=== PATIENT | female | born 1975 | race Caucasian/White ===

== ENCOUNTER → 2017-02-07 | Outpatient (CLI) | payer OTHER ==
[2017-02-07 09:04] LABS: ALT 39 U/L (9-52); AST 21 U/L (14-36); Alkaline Phosphatase 60 U/L (38-126); Anion Gap 8 mmol/L; Blood Urea Nitrogen 17 mg/dL (7-17); Calcium 9.3 mg/dL (8.4-10.2); Carbon Dioxide 26 mmol/L (22-30); Chloride 106 mmol/L (98-107); Cholesterol 203 mg/dL (<200); Glucose 107 mg/dL (74-99); HDL Cholesterol 47 mg/dL (40-60); Non-African American GFR(MDRD) >60 (>60 ml/min/1.73 sqM); Potassium 4.8 mmol/L (3.5-5.1); Sodium 140 mmol/L (137-145); Total Bilirubin 0.6 mg/dL (0.2-1.3); Total Protein 6.9 g/dL (6.3-8.2)
== END | disposition home or self-care (01) ==
LOC: LABWHC1 08:13
PROVIDERS: ATTEND Physician Assistant Medical
DX: Z00.00 Encounter for general adult medical examination without abnormal findings (principal); Z13.29 Encounter for screening for other suspected endocrine disorder; Z13.220 Encounter for screening for lipoid disorders
CPT/HCPCS: 36415; 80053; 80061; 84443

== ENCOUNTER 2019-10-01 12:01 | Emergency (ER) | payer BC, OTHER ==
[2019-10-01 12:23] VITALS: BP 130/71; PULSE 76; RESP 18; TEMP 97.7
[2019-10-01] MEDS ORDERED: MAG HYDROX/AL HYDROX/SIMETH 30 ML, HYOSCYAMINE ELIXIR 10 ML PO STA ×2 (12:31)
--- NOTE | 2019-10-01 12:34 | ED ---
General Adult HPI - General Chief complaint: Abdominal Pain Stated complaint: poss gallbladder problem Time Seen by Provider: 10/01/19 12:15 Source: patient, RN notes reviewed, old records reviewed Mode of arrival: ambulatory Limitations: no limitations - History of Present Illness Initial comments: This is a 43-year-old female presents emergency department because she was having epigastric abdominal pain and was reading around her abdomen into the [employer]. Patient states it happened today at work a few hours after she ate. She states the pain is excruciating and then it eventually subsides. Patient states sometimes water seems to help. Patient states she's had happened 2 other times over the last couple of months. Patient denies any vomiting patient denies any diarrhea. Patient any chest pain difficult breathing or shortness of breath per patient denies any palpitations. Patient denies any recent fever chills or cough. Patient denies any previous known gallbladder symptoms. Patient states she has taken antacids but it hasn't helped. - Related Data Home Medications Medication Instructions Recorded Confirmed Flonase(Dose Unknown) 2 sprays EA NOSTRIL HS 06/15/14 03/30/15 Travoprost [Travatan Z 0.004%] 1 drop BOTH EYES HS 06/15/14 03/30/15 Famotidine [Pepcid] 40 mg PO HS 03/30/15 03/30/15 Ibuprofen [Motrin] 800 mg PO BID PRN 03/30/15 03/30/15 Previous Rx's Medication Instructions Recorded Meclizine [Antivert] 25 mg PO DAILY 10 Days tab 03/30/15 Allergies Allergy/AdvReac Type Severity Reaction Status Date / Time codeine AdvReac Nausea & Verified 10/01/19 12:22 Vomiting naproxen AdvReac Unknown Verified 10/01/19 12:22 Review of Systems ROS Statement: Those systems with pertinent positive or pertinent negative responses have been documented in the HPI. ROS Other: All systems not noted in ROS Statement are negative. Past Medical History Past Medical History: Thyroid Disorder Additional Past Medical History / Comment(s): glaucoma History of Any Multi-Drug Resistant Organisms: None Reported Past Surgical History: Section, Orthopedic Surgery Past Psychological History: No Psychological Hx Reported Smoking Status: Never smoker Past Alcohol Use History: Occasional Past Drug Use History: None Reported General Exam - General Exam Comments Initial Comments: GENERAL: Patient is well-developed and well-nourished. Patient is nontoxic and well- hydrated and is in mild distress. ENT: Neck is soft and supple. No significant lymphadenopathy is noted. Oropharynx is clear. Moist mucous membranes. Neck has full range of motion without [place] citing any pain. EYES: The sclera were anicteric and conjunctiva were pink and moist. Extraocular movements were intact and pupils were equal round and reactive to light. Eyelids were unremarkable. PULMONARY: Unlabored respirations. Good breath sounds bilaterally. No audible rales rhonchi or wheezing was noted. CARDIOVASCULAR: There is a regular rate and rhythm without any murmurs gallops or rubs. ABDOMEN: Soft and nontender with normal bowel sounds. SKIN: Skin is clear with no lesions or rashes and otherwise unremarkable. NEUROLOGIC: Patient is alert and oriented x3. Cranial nerves II through XII are grossly intact. Motor and sensory are also intact. Normal speech, volume and content. Symmetrical smile. MUSCULOSKELETAL: Normal extremities with adequate strength and full range of motion. LYMPHATICS: No significant lymphadenopathy is noted PSYCHIATRIC: Normal psychiatric evaluation. Limitations: no limitations Course Vital Signs 10/01/19 12:17 Temperature 97.7 F Pulse Rate 76 Respiratory 18 Rate Blood Pressure 130/71 O2 Sat by Pulse 99 Oximetry Medical Decision Making - Medical Decision Making Ultrasound shows cholelithiasis but no obvious signs of cholecystitis I will begin to reevaluate the patient patient was pain-free at this time and she did state that the GI cocktail did not help her - Lab Data Result diagrams: 10/01/19 12:46 10/01/19 12:46 Lab Results 10/01/19 10/01/19 10/01/19 Range/Units 12:46 12:46 12:46 WBC 11.2 H (3.8-10.6) k/uL RBC 4.65 (3.80-5.40) m/uL Hgb 13.7 (11.4-16.0) gm/dL Hct 41.6 (34.0-46.0) % MCV 89.3 (80.0-100.0) fL MCH 29.5 (25.0-35.0) pg MCHC 33.1 (31.0-37.0) g/dL RDW 12.6 (11.5-15.5) % Plt Count 308 (150-450) k/uL Neutrophils % 73 % Lymphocytes % 17 % Monocytes % 6 % Eosinophils % 2 % Basophils % 0 % Neutrophils # 8.2 H (1.3-7.7) k/uL Lymphocytes # 2.0 (1.0-4.8) k/uL Monocytes # 0.6 (0-1.0) k/uL Eosinophils # 0.2 (0-0.7) k/uL Basophils # 0.1 (0-0.2) k/uL Sodium 139 (137-145) mmol/L Potassium 3.9 (3.5-5.1) mmol/L Chloride 104 (98-107) mmol/L Carbon Dioxide 25 (22-30) mmol/L Anion Gap 10 mmol/L BUN 14 (7-17) mg/dL Creatinine 0.87 (0.52-1.04) mg/dL Est GFR (CKD-EPI)AfAm >90 (>60 ml/min/1.73 sqM) Est GFR (CKD-EPI)NonAf 82 (>60 ml/min/1.73 sqM) Glucose 112 H (74-99) mg/dL Calcium 9.6 (8.4-10.2) mg/dL Total Bilirubin 1.1 (0.2-1.3) mg/dL AST 115 H (14-36) U/L ALT 51 H (4-34) U/L Alkaline Phosphatase 77 (38-126) U/L Total Protein 7.4 (6.3-8.2) g/dL Albumin 4.2 (3.5-5.0) g/dL Amylase 42 (30-110) U/L Lipase 49 (23-300) U/L Urine Color Yellow Urine Appearance Clear (Clear) Urine pH 6.0 (5.0-8.0) Ur Specific [place] 1.019 (1.001-1.035) Urine Protein Negative (Negative) Urine Glucose (UA) Negative (Negative) Urine Ketones Negative (Negative) Urine Blood Trace H (Negative) Urine Nitrite Negative (Negative) Urine Bilirubin Negative (Negative) Urine Urobilinogen <2.0 (<2.0) mg/dL Ur Leukocyte Esterase Small H (Negative) Urine RBC 2 (0-5) /hpf Urine WBC 2 (0-5) /hpf Ur Squamous Epith Cells 4 (0-4) /hpf Urine Mucus Rare H (None) /hpf Disposition Clinical Impression: Cholelithiasis, Biliary colic Disposition: HOME SELF-CARE Condition: Good Instructions (If sedation given, give patient instructions): Biliary Colic (ED), Gallstones (ED) Is patient prescribed a controlled substance at d/c from ED?: No Referrals: Cameron Anaya III, MD [Primary Care Provider] - 1-2 days Time of Disposition: 14:12
[2019-10-01 12:52] LABS: Appearance,Urine Clear (Clear); Bilirubin,Urine Negative (Negative); Blood,Urine Trace (Negative); Color,Urine Yellow; Glucose,Urine (UA) Negative (Negative); Ketones,Urine Negative (Negative); Leukocyte Esterase,Urine Small (Negative); Mucus,Urine Rare /hpf; Nitrite,Urine Negative (Negative); Protein,Urine Negative (Negative); RBC,Urine 2 /hpf (0-5); Specific Gravity,Urine 1.019 (1.001-1.035); Squamous Epithelial Cell,Urine 4 /hpf (0-4); Urobilinogen,Urine <2.0 mg/dL (<2.0); WBC,Urine 2 /hpf (0-5)
[2019-10-01 12:53] LABS: Basophils # (A) 0.1 k/uL (0-0.2); Basophils % (A) 0 %; Eosinophils # (A) 0.2 k/uL (0-0.7); Eosinophils % (A) 2 %; HCT 41.6 % (34.0-46.0); HGB 13.7 gm/dL (11.4-16.0); Lymphocytes % (A) 17 %; MCH 29.5 pg (25.0-35.0); MCHC 33.1 g/dL (31.0-37.0); MCV 89.3 fL (80.0-100.0); Mean Platelet Volume 6.8; Monocytes # (A) 0.6 k/uL (0-1.0); Monocytes % (A) 6 %; Neutrophils # (A) 8.2 k/uL (1.3-7.7); Neutrophils % (A) 73 %; Platelet Count 308 k/uL (150-450); RBC 4.65 m/uL (3.80-5.40); RDW 12.6 % (11.5-15.5); WBC 11.2 k/uL (3.8-10.6)
[2019-10-01 13:04] LABS: ALT 51 U/L (4-34); AST 115 U/L (14-36); African American GFR (CKD) >90 (>60 ml/min/1.73 sqM); Albumin 4.2 g/dL (3.5-5.0); Alkaline Phosphatase 77 U/L (38-126); Amylase 42 U/L (30-110); Anion Gap 10 mmol/L; Blood Urea Nitrogen 14 mg/dL (7-17); Calcium 9.6 mg/dL (8.4-10.2); Carbon Dioxide 25 mmol/L (22-30); Chloride 104 mmol/L (98-107); Glucose 112 mg/dL (74-99); Non-African American GFR(CKD) 82 (>60 ml/min/1.73 sqM); Potassium 3.9 mmol/L (3.5-5.1); Sodium 139 mmol/L (137-145); Total Bilirubin 1.1 mg/dL (0.2-1.3); Total Protein 7.4 g/dL (6.3-8.2)
--- NOTE | 2019-10-01 13:16 | XR ---
EXAMINATION TYPE: XR KUB DATE OF EXAM: 10/01/2019 COMPARISON: NONE HISTORY: Pain TECHNIQUE: Single supine KUB image of the abdomen is obtained FINDINGS: Small bowel demonstrates no evidence for dilatation or air fluid levels. Gas and fecal material is seen in non-distended colon. No convincing evidence for pneumoperitoneum. No unusual calcifications. The lung bases are clear. The osseous structures are intact. IMPRESSION: 1. Overall nonobstructive bowel gas pattern.
--- NOTE | 2019-10-01 13:53 | US ---
EXAMINATION TYPE: US gallbladder DATE OF EXAM: 10/01/2019 COMPARISON: NONE CLINICAL HISTORY: Epigastric abdominal pain radiating to the back . EXAM MEASUREMENTS: Liver Length: 15.1 cm Gallbladder Wall: 0.5 cm CBD: 0.5 cm Right Kidney: 10.1 x 3.6 x 4.5 cm Pancreas: Obscured by bowel gas Liver: wnl Gallbladder: cholelithiasis, wall slightly thickened Evidence for sonographic José's sign: no CBD: wnl Right Kidney: wnl IMPRESSION: 1. Cholelithiasis correlate for cholecystitis.
== END 2019-10-01 14:44 | disposition home or self-care (01) ==
LOC: EC 12:01
DX: K80.70 Calculus of gallbladder and bile duct without cholecystitis without obstruction (principal); H40.9 Unspecified glaucoma; Z79.899 Other long term (current) drug therapy; Z88.5 Allergy status to narcotic agent; Z88.6 Allergy status to analgesic agent; Z98.890 Other specified postprocedural states
CPT/HCPCS: 36415; 74018; 76705; 80053; 81001; 82150; 83690; 85025; 99285

== ENCOUNTER → 2020-01-11 | Outpatient (CLI) | payer BC ==
--- NOTE | 2020-01-11 14:05 | MM ---
Reason for exam: screening (asymptomatic). Last mammogram was performed 5 years ago. History: Took hormonal contraceptives for 3 years. Physical Findings: A clinical breast exam by your physician is recommended on an annual basis and results should be correlated with mammographic findings. MG Screening Mammo w CAD Bilateral CC and MLO view(s) were taken. Prior study comparison: December 26, 2014, bilateral MG screening mammo w CAD. There are scattered fibroglandular densities. Focal asymmetry anterior depth slight upper outer quadrant 3-4cm from nipple. This finding is changed when compared with previous exams. ASSESSMENT: Incomplete: need additional imaging evaluation, BI-RAD 0 RECOMMENDATION: Special view mammogram of the left breast. If lesion persists on supplemental views, image directed ultrasound is recommended. [facility] will attempt to contact patient to return for supplemental views and ultrasound if indicated.
== END | disposition home or self-care (01) ==
LOC: RADMAMWWP 08:17
PROVIDERS: ATTEND Family Medicine
DX: Z12.31 Encounter for screening mammogram for malignant neoplasm of breast (principal)
CPT/HCPCS: 77067

== ENCOUNTER → 2020-01-13 | Outpatient (CLI) | payer BC ==
--- NOTE | 2020-01-18 10:00 | MM ---
Reason for exam: additional evaluation requested from abnormal screening. Last mammogram was performed less than 1 month ago. History: Took hormonal contraceptives for 3 years. Physical Findings: Nurse did not find any significant physical abnormalities on exam. MG Work Up Mamm w CAD LT Spot compression CC, spot compression MLO, and ML view(s) were taken of the left breast. Prior study comparison: January 11, 2020, bilateral MG screening mammo w CAD. December 26, 2014, bilateral MG screening mammo w CAD. There are scattered fibroglandular densities. Finding: There is a new 6-7mm indistinct round mass located 5-6cm from the nipple in the anterior position of the left breast, persists on additional views. These results were verbally communicated with the patient and result sheet given to the patient on 01/13/20. ASSESSMENT: Incomplete: need additional imaging evaluation, BI-RAD 0 RECOMMENDATION: Ultrasound of the left breast.
--- NOTE | 2020-01-18 10:01 | USB ---
Reason for exam: additional evaluation requested from abnormal screening. History: Took hormonal contraceptives for 3 years. US Breast Workup Limited LT Left limited breast ultrasound including focal area of concern, retroareolar and axilla demonstrates no cystic or solid lesion seen. These results were verbally communicated with the patient and result sheet given to the patient on 01/13/20. ASSESSMENT: Suspicious, BI-RAD 4 RECOMMENDATION: Stereotactic core biopsy of the left breast. Called Dr. Anaya's office with mammographic findings and has scheduled an appointment for the patient for 03/08/20 at 4:[address] Chester. Biopsy scheduled for 01/31/20 at 8:00. PRELIMINARY REPORT CALLED AND FAXED TO DR. CHESTER ON 01/18/20.
== END | disposition home or self-care (01) ==
LOC: RADMAMWWP 07:05
PROVIDERS: ATTEND Family Medicine
DX: R92.8 Other abnormal and inconclusive findings on diagnostic imaging of breast (principal)
CPT/HCPCS: 77065

== ENCOUNTER → 2020-01-31 | Day surgery (SDC) | payer BC ==
[2020-01-31 07:36] VITALS: BP 113/75; PULSE 92; RESP 16; TEMP 98.3
--- NOTE | 2020-02-01 08:53 | MM ---
EXAMINATION TYPE: MG discontinued stereo core LT DATE OF EXAM: 01/31/2020 COMPARISON: NONE CLINICAL HISTORY: Nodular density left breast Multiple unsuccessful attempts were made at localizing nodular density left breast. Needle localizati on with open biopsy is recommended. This was discussed with patient. IMPRESSION: Localization and open biopsy for nodular density.
== END ==
LOC: RADMAMWWP 07:12
PROVIDERS: ATTEND Surgery
DX: R92.8 Other abnormal and inconclusive findings on diagnostic imaging of breast (principal); Z53.09 Procedure and treatment not carried out because of other contraindication

== ENCOUNTER → 2020-04-27 | Outpatient (CLI) | payer BC ==
--- NOTE | 2020-04-28 09:45 | MM ---
Reason for exam: follow-up at short interval from prior study. Last mammogram was performed 3 months ago. History: MG discontinued stereo core LT of the left breast, January 31, 2020. Took hormonal contraceptives for 3 years. Physical Findings: Nurse did not find any significant physical abnormalities on exam. MG Diagnostic Mammo LT w CAD CC and MLO view(s) were taken of the left breast. Prior study comparison: January 13, 2020, left breast MG work up mamm w CAD LT. January 11, 2020, bilateral MG screening mammo w CAD. Finding: There is a typically benign equal density (isodense), circumscribed round mass located 8 cm from the nipple in the upper quadrant, posterior position of the left breast. Focal asymmetry, faint. No persisting density. New finding since January 13, 2020 and January 11, 2020. These results were verbally communicated with the patient and result sheet given to the patient on 04/27/20. ASSESSMENT: Probably benign, BI-RAD 3 RECOMMENDATION: Follow-up diagnostic mammogram of the left breast in 3 months.
== END | disposition home or self-care (01) ==
LOC: RADMAMWWP 08:10
PROVIDERS: ATTEND Surgery
DX: R92.8 Other abnormal and inconclusive findings on diagnostic imaging of breast (principal)
CPT/HCPCS: 77065

== ENCOUNTER → 2020-08-10 | Outpatient (CLI) | payer BC ==
--- NOTE | 2020-08-11 09:53 | MM ---
Reason for exam: follow-up at short interval from prior study. Last mammogram was performed 4 months ago. History: MG discontinued stereo core LT of the left breast, January 31, 2020. Took hormonal contraceptives for 3 years. Physical Findings: Nurse did not find any significant physical abnormalities on exam. MG 3D Diag Mammo W/Cad LT CC, MLO, and XCCL view(s) were taken of the left breast. Prior study comparison: April 27, 2020, left breast MG diagnostic mammo LT w CAD. January 13, 2020, left breast MG work up mamm w CAD LT. There are scattered fibroglandular densities. Persistent 6mm left upper quadrant nodule 1-2 o'clock 4cm from nipple. These results were verbally communicated with the patient and result sheet given to the patient on 08/10/20. ASSESSMENT: Incomplete: need additional imaging evaluation, BI-RAD 0 RECOMMENDATION: Ultrasound of the left breast.
--- NOTE | 2020-08-11 09:57 | USB ---
Reason for exam: additional evaluation requested from abnormal screening. History: MG discontinued stereo core LT of the left breast, January 31, 2020. Took hormonal contraceptives for 3 years. US Breast Limited LT Left limited breast ultrasound including focal area of concern, retroareolar and axilla demonstrates no sonographic finding. Recommend left breast 3D stereotactic biopsy. These results were verbally communicated with the patient and result sheet given to the patient on 08/10/20. ASSESSMENT: Suspicious, BI-RAD 4 RECOMMENDATION: Stereotactic core biopsy of the left breast. Patient wishes to continue to follow area of concern and declined biopsy at this time. Called Dr. Daniels's office with mammographic findings. PRELIMINARY REPORT CALLED AND FAXED TO DR. DANIELS ON 08/11/20.
== END | disposition home or self-care (01) ==
LOC: RADMAMWWP 13:07
PROVIDERS: ATTEND Family Medicine
DX: N63.21 Unspecified lump in the left breast, upper outer quadrant (principal); N64.89 Other specified disorders of breast
CPT/HCPCS: 77061; 77065

== ENCOUNTER → 2021-12-05 | Outpatient (CLI) | payer BC ==
--- NOTE | 2021-12-05 17:40 | P.SLEEP ---
History of Present Illness DATE: 12/05/2021 CONSULTATION/NEW PATIENT EVALUATION HISTORY OF PRESENT ILLNESS/SLEEP-WAKE EVALUATION: 46 year old lady had been evaluated in the sleep center for possible obstructive sleep apnea hypopnea syndrome. SLEEP SCHEDULE: Usually sleep schedule on weekdays 1012 until 6-7 AM, during days off 1012 until 89 AM. FALLING ASLEEP: No problems with falling asleep, although there is a TV in bedroom. DURING SLEEP: Positive history of restless leg symptoms. Patient has very loud snoring and wakes up from sleep once with nocturia. No history of hypnogogical hallucinations, sleep paralysis, or cataplexy. DURING THE DAY/WAKE STATE: In the morning patient to wake up tired sometimes has difficulties to pay attention, falling asleep in the day, has problems with concentration and anxiety. [place] sleepiness scale is 6. Usually patient doesn't take naps. PAST MEDICAL HISTORY: Arthritis of hips, knees, shoulders. Hypothyroidism in the past. PAST SURGICAL HISTORY: , left ACL surgical treatment. MEDICATIONS: Claritin, ibuprofen. SOCIAL HISTORY: Negative for smoking, alcohol consumption occasional. FAMILY HISTORY: Heart problems, cancer, thyroid problems. REVIEW OF SYSTEMS: Loud snoring, awakenings from sleep. No fevers. No double vision. No recent chest pain. No shortness of breath. No abdominal pain. No bleeding episodes. No blood in urine. No seizure episodes. PHYSICAL EXAMINATION: GENERAL: A pleasant patient without any distress. VITAL SIGNS: BP 121/65 , HR 71 , RR 14 , weight 227.6 pounds, height 5 foot 5 inches, body mass index 37.7 . HEENT: PERRLA, EOMI. Evaluation of oropharynx showed tongue protrudes midline, low position of soft palate Mallampati 2-3. NECK: Supple. No JVD. Thyroid is not palpable. 14-1/4 inches in circumference. LUNGS: Clear to percussion and to auscultation. Good air exchange. No wheezing or rhonchi. HEART: S1, S2 regular. No murmurs, gallops or rubs. ABDOMEN: Soft and nontender. Bowel sounds are present. No organomegaly appreciated. Slightly obese EXTREMITIES: No clubbing or cyanosis. NEUROSURGERY PHYSICIAN: Awake, alert, and oriented x3. Cranial nerves 2 to 7 intact. There is no fasciculation or atrophy noted. No focal deficits observed. ASSESSMENT: 1. Loud snoring, awakenings from sleep with nocturia, moderately low position of soft palate. Obstructive sleep apnea hypopnea syndrome. 2. Obesity body mass is 37.7. 3 restless leg symptoms. 4. History of hypothyroidism. 5 hips, knees, shoulder arthritis. 6. Status post . 7. Status post left ACL surgical treatment. PLAN: 1. Polysomnography for evaluation of patient's breathing during sleep. 2. CPAP/BiPAP titration if sleep study confirms obstructive sleep apnea-hypop richi syndrome. 3. Preferable position during sleep on the side. 4. No driving if patient feels any sleepiness. Patient is aware of civil and criminal liability for unsafe driving. 5. Sleep hygiene with regular sleep time for at least 7.5-8 hours. 6. Watching and losing weight. Thank you very much for referring this patient for consultation. Sincerely, Pardeep Garcia MD, PhD, FAASM. Diplomat of [place] [employer], Sleep Medicine Board by [place] [employer] [place] [employer] [facility] [place] Past Medical History Past Medical History: No Reported History Additional Past Medical History / Comment(s): glaucoma History of Any Multi-Drug Resistant Organisms: None Reported Past Surgical History: Section, Orthopedic Surgery Additional Past Surgical History / Comment(s): Left knee acl repair. bilat Eye surgery Past Anesthesia/Blood Transfusion Reactions: No Reported Reaction Past Psychological History: No Psychological Hx Reported Smoking Status: Never smoker Past Alcohol Use History: Occasional Past Drug Use History: None Reported Medications and Allergies Home Medications Medication Instructions Recorded Confirmed Type Flonase(Dose Unknown) 2 sprays EA NOSTRIL HS 06/15/14 01/31/20 History Ibuprofen [Motrin] 800 mg PO BID PRN 03/30/15 01/31/20 History Fexofenadine HCl [Vonda Allergy] 180 mg PO DAILY 01/24/20 01/31/20 History Allergies Allergy/AdvReac Type Severity Reaction Status Date / Time codeine AdvReac Nausea & Verified 01/31/20 07:27 Vomiting naproxen AdvReac Unknown Verified 01/31/20 07:27 Sleep Note - Sleep Note Sleep Note: Temperature: Pulse Rate: Respiratory Rate: Blood Pressure: SpO2: Height: Weight: BMI: Neck Circumference:
== END ==
LOC: SLEEP 15:05
PROVIDERS: ATTEND Internal Medicine
DX: G47.33 Obstructive sleep apnea (adult) (pediatric) (principal); G25.81 Restless legs syndrome; E03.9 Hypothyroidism, unspecified; M16.0 Bilateral primary osteoarthritis of hip; E66.9 Obesity, unspecified; M17.0 Bilateral primary osteoarthritis of knee; M19.019 Primary osteoarthritis, unspecified shoulder; Z87.59 Personal history of other complications of pregnancy, childbirth and the puerperium; Z98.890 Other specified postprocedural states; Z68.37 Body mass index [BMI] 37.0-37.9, adult; Z88.5 Allergy status to narcotic agent; Z88.6 Allergy status to analgesic agent
CPT/HCPCS: 99211

== ENCOUNTER → 2022-01-25 | Outpatient (CLI) | payer BC ==
--- NOTE | 2022-01-25 10:36 | MR ---
EXAMINATION TYPE: MR lumbar spine wo con DATE OF EXAM: 01/25/2022 COMPARISON: NONE HISTORY: Back pain and radiculopathy TECHNIQUE: T1 and T2 axial and sagittal images of the lumbar spine are submitted. FINDINGS: There is no abnormal signal seen within the visualized spinal cord or paraspinal soft tissu es. At L1-2 there is no degenerative disc disease, disc herniation, canal stenosis or foraminal At L2-3 there is mild narrowing of disc space this disc herniation but no disc herniation, or canal s tenosis or foraminal mild hypertrophic change since. At L3-4 there is moderate degenerative disc disease. Broad-based central disc bulging with mild effac ement of the thecal sac. Hypertrophy of the facet joints and ligamentum flavum. No canal stenosis. Ne ural foramina remain patent At L4-5 there is broad-based disc bulging with small focal disc protrusion tiny herniation centrally. Advanced facet arthropathy greater on the right. Moderate right foraminal protrusion with mild left foraminal and mild central stenosis and diminutive canal. There is a minimal anterior listhesis of L4 and L5 At L5-S1 there is degenerative disc disease. There is a broad-based central left paracentral disc her niation. No canal stenosis. Facet arthropathy and discogenic marrow changes. Mild to moderate left fo raminal encroachment. IMPRESSION: 1. Multilevel degenerative disc disease most marked at L3-4, L4-5 and L5-S1. 2. A broad-based central left paracentral disc protrusion or small herniation L5-S1 with mild to mode rate left foraminal encroachment. 3. Advanced facet arthropathy contributes to grade 1 anterolisthesis L4 on L5. Diffuse disc bulging w ith a small focal central disc protrusion tiny herniation centrally. Borderline to mild central steno sis and moderate right and mild left foraminal encroachment broad-based central disc bulging with mil d effacement of the thecal sac L3-L4. Neural foramina remain patent.
== END | disposition home or self-care (01) ==
LOC: RADMRIMAIN 09:22
PROVIDERS: ATTEND Family Medicine
DX: M51.17 Intervertebral disc disorders with radiculopathy, lumbosacral region (principal); M43.16 Spondylolisthesis, lumbar region; M48.061 Spinal stenosis, lumbar region without neurogenic claudication
CPT/HCPCS: 72148

== ENCOUNTER → 2022-02-08 | Outpatient (CLI) | payer BC ==
--- NOTE | 2022-02-11 08:33 | MM ---
Reason for Exam: Screening (asymptomatic). Last mammogram was performed 2 year(s) and 1 month(s) ago. Patient History: Menarche at age 8. First Full-Term at age 28. Patient used Hormonal Contraceptives for 3 years. 01/31/2020, MG discontinued stereo core LT on the left side. Last menstrual period: 01/11/2022 Risk Values: Janine 5 year model risk: 1.1%. NCI Lifetime model risk: 11.3%. Prior Study Comparison: 01/13/2020 Left Diagnostic Mammogram, [facility]. 04/27/2020 Left Diagnostic Mammogram, [facility]. 08/10/2020 Left Diagnostic Mammogram, [facility]. Tissue Density: There are scattered fibroglandular densities. Findings: Analyzed By CAD. There is no suspicious group of microcalcifications or new suspicious mass in either breast. Overall Assessment: Negative, BI-RAD 1 Management: Screening Mammogram of both breasts in 1 year. A clinical breast exam by your physician is recommended on an annual basis and results should be correlated with mammographic findings. Electronically signed and approved by: Johnson Collado M.D. Radiologis
== END | disposition home or self-care (01) ==
LOC: RADMAMWWP 16:21
PROVIDERS: ATTEND Obstetrics & Gynecology
DX: Z12.31 Encounter for screening mammogram for malignant neoplasm of breast (principal)
CPT/HCPCS: 77063; 77067

== ENCOUNTER → 2022-02-20 | Outpatient (CLI) | payer BC ==
--- NOTE | 2022-02-20 11:15 | P.PN ---
Subjective DATE: 02/20/2022 FOLLOW UP VISIT. Patient returned to sleep center for follow-up visit to discuss results of sleep study and following plan. I discussed results of sleep study with patient in details. No significant respiratory abnormalities have been documented. Total apnea hypopnea index is only 1.1, which is absolutely perfect. Lowest oxygen level 88.8%. No oxygen desaturation during the sleep. High sleep efficiency 94.5% was documented. Periodic limb movements 15.4 times per hour with 0.3 micro-arousals have been documented most of the second part of the night, subsequently if to count only second part of the night index will be around 25-30 per hour, which is significant. No significant amount of micro-arousals related to leg movements although have been documented. No significant excessive daytime sleepiness [place] Sleepiness Scale is 3 which is normal. Snoring have been documented during the sleep study. MEDICATIONS:1. Claritin 2. Ibuprofen During physical exam: GENERAL: A pleasant patient without any distress. VITAL SIGNS: BP 114/79, HR 61, RR 18 , weight 232.8, temperature 98.1, oxygen saturation at room air 98% . HEENT: PERRLA, EOMI. NECK: Supple. No JVD. LUNGS: Clear to percussion and to auscultation. Good air exchange. No wheezing or rhonchi. HEART: S1, S2 regular. ABDOMEN: Soft and nontender. EXTREMITIES: No clubbing or cyanosis. HEEL CURVER: Awake, alert, and oriented x3. No focal deficit. Impressions: 1. No significant respiratory abnormalities have been documented during the sleep. Normal oxygen distortion. 2. Significant periodic limb movements have been documented on the second part of the sleep study, but without significant amount of micro-arousals.. 3. Patient is a vegetarian, which may increase risk for low level of iron. Low level of iron may increase risk for periodic limb movements.. 4. Snoring. 5. Obesity. 6. History of Hypothyroidism in the past. 7. History of hips, knees and shoulder arthritis. 8. Status post . Plan: 1. Please check iron profile including ferritin level. If level of 80 less than 50 ng/mL consider iron supplement. 2. Sleep hygiene with regular time in bed for at least 8 hours. 3. Daytime naps permitted 4. Precautions related to driving. No driving if feel any sleepiness. Patient is aware about civil and criminal liability for unsafe driving, promised to follow recommendations. 5. Losing weight 6. Patient may consider evaluation by ear nose and throat physician for treatment of snoring. Procedure like shrinking uvula may help. 7. Patient continued to have regular menstrual periods. Risk of sleep apnea may increase for females after reaching menopause. At that time patient may consider to be reevaluated. Thank you very much for allowing me to participate in the management of your patient. Pardeep Garcia MD, PhD, FAASM. Diplomat of [place] [employer], Sleep Medicine Board by [place] [employer] Assessment Expert of [facility] [place]
== END ==
LOC: SLEEP 10:21
PROVIDERS: ATTEND Internal Medicine
DX: G47.33 Obstructive sleep apnea (adult) (pediatric) (principal); G47.61 Periodic limb movement disorder; E66.9 Obesity, unspecified; Z86.39 Personal history of other endocrine, nutritional and metabolic disease; Z87.39 Personal history of other diseases of the musculoskeletal system and connective tissue; Z98.890 Other specified postprocedural states; Z88.5 Allergy status to narcotic agent; Z88.6 Allergy status to analgesic agent
CPT/HCPCS: 99212

== ENCOUNTER → 2023-09-12 | Outpatient (CLI) | payer BC, OTHER ==
--- NOTE | 2023-09-15 08:08 | MM ---
Reason for Exam: Screening (asymptomatic). Last mammogram was performed 1 year(s) and 7 month(s) ago. Patient History: Menarche at age 8. First Full-Term at age 28. Patient used Hormonal Contraceptives for 3 years. 01/31/2020, MG discontinued stereo core LT on the left side. Risk Values: Janine 5 year model risk: 1.1%. NCI Lifetime model risk: 11.1%. Prior Study Comparison: 04/27/2020 Left Diagnostic Mammogram, [facility]. 08/10/2020 Left Diagnostic Mammogram, [facility]. 02/08/2022 Bilateral MG 3D screening mammo w/cad, [facility]. Tissue Density: There are scattered areas of fibroglandular density. Findings: Analyzed By CAD. There is no suspicious group of microcalcifications or new suspicious mass in either breast. Overall Assessment: Negative, BI-RAD 1 Management: Screening Mammogram of both breasts in 1 year. . Patient should continue monthly self-breast exams. A clinical breast exam by your physician is recommended on an annual basis. This exam should not preclude additional follow-up of suspicious palpable abnormalities. Note on Janine scores and lifetime risk: 1. A Janine score greater than 3% is considered moderate risk. If this is the case, consider specialist referral to assess eligibility for a risk reducing agent. 2. If overall lifetime risk for the development of breast cancer is 20% or higher, the patient may qualify for future screening with alternating mammogram and breast MRI. Electronically signed and approved by: Johnson Collado M.D. Radiolog[facility]
== END | disposition home or self-care (01) ==
LOC: RADMAMWWP 11:33
PROVIDERS: ATTEND Family Medicine
DX: Z12.31 Encounter for screening mammogram for malignant neoplasm of breast (principal)
CPT/HCPCS: 77063; 77067